=== PATIENT | male | born 1950 | race Caucasian/White ===

== ENCOUNTER 2020-08-21 14:16 | Inpatient (IN) ==
[2020-08-22] MEDS ORDERED: OLANZapine 5 MG TAB.RAPDIS PO PRN (17:33)
[2020-08-22] MEDS: Famotidine 20 MG TABLET PO SCH (21:06)
[2020-08-22] MEDS: levETIRAcetam 250 MG TABLET PO SCH (21:06)
[2020-08-22] MEDS: dexAMETHasone 4 MG TABLET PO SCH (21:06)
[2020-08-22] MEDS: Clotrimazole/Betameth Dip CRM 45 APPL/45 GM TUBE TP SCH (21:07)
[2020-08-22 21:19] LABS: Bilirubin,Urine Negative (Negative); Blood,Urine Trace-intact (Negative); Clarity,Urine Clear (Clear); Color,Urine Yellow (Yellow); Glucose,Urine (UA) Normal (Normal); Ketones,Urine Negative (Negative); Leukocyte Esterase,Urine Negative (Negative); Nitrite,Urine Negative (Negative); Protein,Urine 30 mg/dL (Neg-Trace); Specific Gravity,Urine 1.015 (1.010-1.025)
[2020-08-22 21:24] LABS: Bacteria,Urine Moderate per hpf (None-Few); RBC,Urine 0-3 per hpf (0-3); Squamous Epithelial Cell,Urine Few per hpf (None-Few); WBC,Urine 0-3 per hpf (0-3)
[2020-08-23] MEDS: *HR* Heparin 5,000 UNIT/ML VIAL SQ SCH ×4 (00:02→23:27)
[2020-08-23] MEDS: Mag Hydrox/Al Hydrox/Simeth 30 ML UDC PO PRN (01:04)
[2020-08-23 05:40] LABS: Hemoglobin 10.7 g/dL (12.9-16.9); Mean Corpuscular HGB Conc 34.5 g/dL (31.6-35.5); Mean Corpuscular Hemoglobin 34.2 pg (28.0-33.3); Mean Platelet Volume 10.7 fL (9.4-12.4); Platelet Count 121 K/mcL (140-400); Red Blood Count 3.13 M/mcL (4.19-5.50); Red Cell Distribution Width 13.6 % (11.5-14.5); White Blood Count 15.9 K/mcL (4.3-11.1)
[2020-08-23 05:47] LABS: INR 1.1; Prothrombin Time 12.5 Seconds (9.4-12.1)
[2020-08-23 05:49] LABS: Activated Partial Thrombo Time 32.6 Seconds (26.0-36.0)
[2020-08-23 05:58] LABS: Alanine Aminotransferase 24 Units/L (7-52); Albumin/Globulin Ratio 2.1 (1.1-2.2); Alkaline Phosphatase 81 Units/L (34-104); Aspartate Amino Transferase 18 Units/L (13-39); BUN/Creatinine Ratio 26 (6-26); Bilirubin,Total 0.9 mg/dL (0.3-1.0); Blood Urea Nitrogen 26 mg/dL (8-23); Carbon Dioxide 25 mEq/L (23-29); Chloride 103 mEq/L (98-107); Globulin 1.4 g/dL (2.4-3.5); Glucose 141 mg/dL (70-105); Magnesium 1.9 mg/dL (1.6-2.6); Osmolality,Calculated 285 (280-300); Potassium 4.2 mEq/L (3.5-5.1); Sodium 134 mEq/L (136-145); Total Protein 4.4 g/dL (6.4-8.9); eGFR For African Americans > 60 (> 60); eGFR For Non-African Americans > 60 (> 60)
[2020-08-23] MEDS: Famotidine 20 MG TABLET PO SCH ×2 (08:48→21:08)
[2020-08-23] MEDS: dexAMETHasone 4 MG TABLET PO SCH ×2 (08:48→21:09)
[2020-08-23] MEDS: levETIRAcetam 250 MG TABLET PO SCH ×2 (08:48→21:10)
[2020-08-23] MEDS: Clotrimazole/Betameth Dip CRM 45 APPL/45 GM TUBE TP SCH ×2 (08:49→21:11)
[2020-08-23] MEDS: OLANZapine 5 MG TAB.RAPDIS PO SCH ×2 (13:50→21:09)
[2020-08-23] MEDS: Divalproex (12 HR) 250 MG TABLET PO SCH ×2 (15:20→21:08)
[2020-08-23] MEDS: Melatonin 3 MG TABLET PO PRN (21:08)
[2020-08-24] MEDS: OLANZapine 5 MG TAB.RAPDIS PO SCH ×3 (05:27→20:09)
[2020-08-24 05:52] LABS: Hematocrit 30.9 % (37.5-50.1); Hemoglobin 10.6 g/dL (12.9-16.9); Mean Corpuscular HGB Conc 34.3 g/dL (31.6-35.5); Mean Corpuscular Hemoglobin 34.1 pg (28.0-33.3); Mean Corpuscular Volume 99.4 fL (83.0-100.0); Mean Platelet Volume 10.6 fL (9.4-12.4); Platelet Count 110 K/mcL (140-400); Red Blood Count 3.11 M/mcL (4.19-5.50); Red Cell Distribution Width 13.8 % (11.5-14.5); White Blood Count 17.9 K/mcL (4.3-11.1)
[2020-08-24 06:04] LABS: BUN/Creatinine Ratio 25 (6-26); Blood Urea Nitrogen 25 mg/dL (8-23); Calcium 7.9 mg/dL (8.6-10.3); Carbon Dioxide 26 mEq/L (23-29); Chloride 105 mEq/L (98-107); Glucose 126 mg/dL (70-105); Magnesium 1.9 mg/dL (1.6-2.6); Osmolality,Calculated 286 (280-300); Potassium 4.2 mEq/L (3.5-5.1); Sodium 135 mEq/L (136-145); eGFR For African Americans > 60 (> 60); eGFR For Non-African Americans > 60 (> 60)
[2020-08-24] MEDS: Famotidine 20 MG TABLET PO SCH ×2 (08:32→20:09)
[2020-08-24] MEDS: levETIRAcetam 250 MG TABLET PO SCH ×2 (08:32→20:09)
[2020-08-24] MEDS: Divalproex (12 HR) 250 MG TABLET PO SCH ×2 (08:32→20:10)
[2020-08-24] MEDS: dexAMETHasone 4 MG TABLET PO SCH ×2 (08:33→20:10)
[2020-08-24] MEDS: *HR* Heparin 5,000 UNIT/ML VIAL SQ SCH ×2 (08:33→15:22)
[2020-08-24] MEDS: Clotrimazole/Betameth Dip CRM 45 APPL/45 GM TUBE TP SCH ×2 (08:34→20:10)
[2020-08-24 16:20] LABS: Basophils % 0.1 %; Hematocrit 31.6 % (37.5-50.1); Hemoglobin 10.7 g/dL (12.9-16.9); Immature Granulocytes % 0.8 % (0-4); Lymphocytes # 0.4 K/mcL (0.6-4.6); Lymphocytes % 2.1 %; Mean Corpuscular HGB Conc 33.9 g/dL (31.6-35.5); Mean Corpuscular Hemoglobin 34.2 pg (28.0-33.3); Mean Platelet Volume 10.6 fL (9.4-12.4); Monocytes # 0.7 K/mcL (0.0-1.3); Platelet Count 109 K/mcL (140-400); Red Blood Count 3.13 M/mcL (4.19-5.50); Red Cell Distribution Width 13.8 % (11.5-14.5)
[2020-08-24 16:22] LABS: Neutrophils # 16.7 K/mcL (1.6-8.9)
[2020-08-24] MEDS: Melatonin 3 MG TABLET PO PRN (21:28)
[2020-08-25] MEDS: OLANZapine 5 MG TAB.RAPDIS PO SCH ×3 (05:45→20:52)
[2020-08-25] MEDS: levETIRAcetam 250 MG TABLET PO SCH ×2 (08:31→20:53)
[2020-08-25] MEDS: dexAMETHasone 4 MG TABLET PO SCH (08:31)
[2020-08-25] MEDS: Divalproex (12 HR) 250 MG TABLET PO SCH ×2 (08:31→20:53)
[2020-08-25] MEDS: *HR* Heparin 5,000 UNIT/ML VIAL SQ SCH ×3 (08:32→16:30)
[2020-08-25] MEDS: Famotidine 20 MG TABLET PO SCH ×2 (08:32→20:53)
[2020-08-25] MEDS: Clotrimazole/Betameth Dip CRM 45 APPL/45 GM TUBE TP SCH ×3 (08:32→20:52)
[2020-08-25] MEDS: Cefdinir 300 MG CAPSULE PO SCH ×2 (12:50→20:53)
[2020-08-26] MEDS: *HR* Heparin 5,000 UNIT/ML VIAL SQ SCH ×4 (00:30→23:40)
[2020-08-26] MEDS: OLANZapine 5 MG TAB.RAPDIS PO SCH ×3 (05:10→21:46)
[2020-08-26] MEDS: dexAMETHasone 4 MG TABLET PO SCH (09:44)
[2020-08-26] MEDS: levETIRAcetam 250 MG TABLET PO SCH ×2 (09:45→21:45)
[2020-08-26] MEDS: Cefdinir 300 MG CAPSULE PO SCH ×2 (09:45→21:47)
[2020-08-26] MEDS: Famotidine 20 MG TABLET PO SCH ×2 (09:46→21:46)
[2020-08-26] MEDS: Divalproex (12 HR) 250 MG TABLET PO SCH ×2 (09:47→21:46)
[2020-08-26] MEDS: Clotrimazole/Betameth Dip CRM 45 APPL/45 GM TUBE TP SCH ×2 (09:47→21:48)
[2020-08-27] MEDS: OLANZapine 5 MG TAB.RAPDIS PO SCH ×3 (05:02→20:58)
[2020-08-27 05:30] LABS: Basophils % 0.1 %; Hematocrit 31.3 % (37.5-50.1); Hemoglobin 10.5 g/dL (12.9-16.9); Immature Granulocytes % 0.8 % (0-4); Lymphocytes # 0.4 K/mcL (0.6-4.6); Lymphocytes % 2.6 %; Mean Corpuscular HGB Conc 33.5 g/dL (31.6-35.5); Mean Corpuscular Volume 101.3 fL (83.0-100.0); Mean Platelet Volume 10.6 fL (9.4-12.4); Monocytes # 0.7 K/mcL (0.0-1.3); Monocytes % 4.1 %; Red Blood Count 3.09 M/mcL (4.19-5.50); Red Cell Distribution Width 14.4 % (11.5-14.5); Segmented Neutrophils % 92.4 %; White Blood Count 16.2 K/mcL (4.3-11.1)
[2020-08-27 05:41] LABS: Platelet Count 77 K/mcL (140-400)
[2020-08-27 05:44] LABS: Platelet Estimate Decreased (Normal)
[2020-08-27 05:49] LABS: Alanine Aminotransferase 24 Units/L (7-52); Albumin 2.8 g/dL (3.5-5.7); Albumin/Globulin Ratio 1.6 (1.1-2.2); Alkaline Phosphatase 91 Units/L (34-104); Aspartate Amino Transferase 15 Units/L (13-39); BUN/Creatinine Ratio 25 (6-26); Bilirubin,Total 0.7 mg/dL (0.3-1.0); Blood Urea Nitrogen 29 mg/dL (8-23); Calcium 8.1 mg/dL (8.6-10.3); Carbon Dioxide 27 mEq/L (23-29); Chloride 104 mEq/L (98-107); Globulin 1.7 g/dL (2.4-3.5); Glucose 120 mg/dL (70-105); Magnesium 1.9 mg/dL (1.6-2.6); Osmolality,Calculated 291 (280-300); Potassium 4.5 mEq/L (3.5-5.1); Sodium 137 mEq/L (136-145); Total Protein 4.5 g/dL (6.4-8.9); eGFR For African Americans > 60 (> 60); eGFR For Non-African Americans > 60 (> 60)
[2020-08-27] MEDS: Cefdinir 300 MG CAPSULE PO SCH ×2 (08:03→20:58)
[2020-08-27] MEDS: Divalproex (12 HR) 250 MG TABLET PO SCH ×2 (08:03→20:58)
[2020-08-27] MEDS: dexAMETHasone 4 MG TABLET PO SCH (08:03)
[2020-08-27] MEDS: levETIRAcetam 250 MG TABLET PO SCH ×2 (08:03→20:58)
[2020-08-27] MEDS: Famotidine 20 MG TABLET PO SCH ×2 (08:03→20:58)
[2020-08-27] MEDS: Clotrimazole/Betameth Dip CRM 45 APPL/45 GM TUBE TP SCH ×2 (08:05→20:58)
[2020-08-27] MEDS: *HR* Heparin 5,000 UNIT/ML VIAL SQ SCH (10:30)
[2020-08-27] MEDS: Melatonin 3 MG TABLET PO PRN (20:58)
[2020-08-28] MEDS: OLANZapine 5 MG TAB.RAPDIS PO SCH ×3 (05:55→20:44)
[2020-08-28] MEDS: levETIRAcetam 250 MG TABLET PO SCH ×2 (08:45→20:44)
[2020-08-28] MEDS: dexAMETHasone 4 MG TABLET PO SCH (08:46)
[2020-08-28] MEDS: Famotidine 20 MG TABLET PO SCH ×2 (08:47→20:43)
[2020-08-28] MEDS: Divalproex (12 HR) 250 MG TABLET PO SCH ×2 (08:47→20:43)
[2020-08-28] MEDS: Cefdinir 300 MG CAPSULE PO SCH ×2 (08:47→20:44)
[2020-08-28] MEDS: Clotrimazole/Betameth Dip CRM 45 APPL/45 GM TUBE TP SCH ×2 (08:48→20:45)
[2020-08-28 16:41] LABS: Basophils % 0.1 %; Hemoglobin 10.1 g/dL (12.9-16.9); Immature Granulocytes % 0.6 % (0-4); Lymphocytes # 0.2 K/mcL (0.6-4.6); Lymphocytes % 1.5 %; Mean Corpuscular HGB Conc 33.7 g/dL (31.6-35.5); Mean Corpuscular Hemoglobin 34.2 pg (28.0-33.3); Mean Corpuscular Volume 101.7 fL (83.0-100.0); Mean Platelet Volume 10.3 fL (9.4-12.4); Monocytes # 0.5 K/mcL (0.0-1.3); Monocytes % 3.2 %; Neutrophils # 13.4 K/mcL (1.6-8.9); Red Blood Count 2.95 M/mcL (4.19-5.50); Red Cell Distribution Width 14.5 % (11.5-14.5); Segmented Neutrophils % 94.6 %; White Blood Count 14.2 K/mcL (4.3-11.1)
[2020-08-28 17:04] LABS: Platelet Count 61 K/mcL (140-400)
[2020-08-29] MEDS: OLANZapine 5 MG TAB.RAPDIS PO SCH (04:48)
[2020-08-29] MEDS: Cefdinir 300 MG CAPSULE PO SCH ×2 (08:31→20:42)
[2020-08-29] MEDS: Divalproex (12 HR) 250 MG TABLET PO SCH ×2 (08:31→20:42)
[2020-08-29] MEDS: Famotidine 20 MG TABLET PO SCH ×2 (08:31→20:41)
[2020-08-29] MEDS: levETIRAcetam 250 MG TABLET PO SCH ×2 (08:32→20:41)
[2020-08-29] MEDS: Clotrimazole/Betameth Dip CRM 45 APPL/45 GM TUBE TP SCH ×2 (08:32→20:42)
[2020-08-29] MEDS: OLANZapine 10 MG TAB.RAPDIS PO SCH (20:41)
[2020-08-29] MEDS: Melatonin 3 MG TABLET PO PRN (20:41)
[2020-08-29] MEDS: Mag Hydrox/Al Hydrox/Simeth 30 ML UDC PO PRN (20:41)
[2020-08-30] MEDS: Clotrimazole/Betameth Dip CRM 45 APPL/45 GM TUBE TP SCH ×3 (01:25→21:37)
[2020-08-30 05:14] LABS: Hematocrit 28.7 % (37.5-50.1); Hemoglobin 9.7 g/dL (12.9-16.9); Mean Corpuscular HGB Conc 33.8 g/dL (31.6-35.5); Mean Corpuscular Hemoglobin 33.9 pg (28.0-33.3); Mean Corpuscular Volume 100.3 fL (83.0-100.0); Mean Platelet Volume 10.6 fL (9.4-12.4); Red Blood Count 2.86 M/mcL (4.19-5.50); Red Cell Distribution Width 14.5 % (11.5-14.5); White Blood Count 8.7 K/mcL (4.3-11.1)
[2020-08-30 05:20] LABS: Platelet Count 49 K/mcL (140-400)
[2020-08-30 05:30] LABS: BUN/Creatinine Ratio 22 (6-26); Blood Urea Nitrogen 24 mg/dL (8-23); Calcium 7.5 mg/dL (8.6-10.3); Carbon Dioxide 26 mEq/L (23-29); Chloride 105 mEq/L (98-107); Glucose 101 mg/dL (70-105); Magnesium 1.8 mg/dL (1.6-2.6); Osmolality,Calculated 288 (280-300); Potassium 3.8 mEq/L (3.5-5.1); Sodium 137 mEq/L (136-145); eGFR For African Americans > 60 (> 60); eGFR For Non-African Americans > 60 (> 60)
[2020-08-30] MEDS: Famotidine 20 MG TABLET PO SCH ×2 (09:29→21:37)
[2020-08-30] MEDS: levETIRAcetam 250 MG TABLET PO SCH ×2 (09:29→21:37)
[2020-08-30] MEDS: Divalproex (12 HR) 250 MG TABLET PO SCH ×2 (09:29→21:37)
[2020-08-30] MEDS: OLANZapine 5 MG TAB.RAPDIS PO SCH (09:30)
[2020-08-30] MEDS: Nystatin SUSP 5 ML UD.LIQ PO SCH ×3 (12:07→21:36)
[2020-08-30] MEDS: Acetaminophen 325 MG TABLET PO SCH (21:37)
[2020-08-30] MEDS: Melatonin 3 MG TABLET PO SCH (21:37)
[2020-08-30] MEDS: OLANZapine 10 MG TAB.RAPDIS PO SCH (21:37)
[2020-08-31] MEDS: levETIRAcetam 250 MG TABLET PO SCH ×2 (07:23→21:39)
[2020-08-31] MEDS: Nystatin SUSP 5 ML UD.LIQ PO SCH ×4 (07:23→21:41)
[2020-08-31] MEDS: Famotidine 20 MG TABLET PO SCH ×2 (07:23→21:36)
[2020-08-31] MEDS: OLANZapine 5 MG TAB.RAPDIS PO SCH (07:24)
[2020-08-31] MEDS: Divalproex (12 HR) 250 MG TABLET PO SCH (07:24)
[2020-08-31] MEDS: Clotrimazole/Betameth Dip CRM 45 APPL/45 GM TUBE TP SCH ×2 (07:24→21:41)
[2020-08-31] MEDS ORDERED: Divalproex (12 HR) 500 MG TABLET PO SCH (21:00)
[2020-08-31] MEDS: Acetaminophen 325 MG TABLET PO SCH (21:40)
[2020-08-31] MEDS: Melatonin 3 MG TABLET PO SCH (21:40)
[2020-08-31] MEDS: OLANZapine 10 MG TAB.RAPDIS PO SCH (21:41)
[2020-09-01] MEDS: levETIRAcetam 250 MG TABLET PO SCH ×2 (09:50→21:02)
[2020-09-01] MEDS: OLANZapine 5 MG TAB.RAPDIS PO SCH (09:51)
[2020-09-01] MEDS: Famotidine 20 MG TABLET PO SCH ×2 (09:51→21:03)
[2020-09-01] MEDS: Clotrimazole/Betameth Dip CRM 45 APPL/45 GM TUBE TP SCH ×2 (09:53→21:01)
[2020-09-01] MEDS: Nystatin SUSP 5 ML UD.LIQ PO SCH ×4 (09:54→21:02)
[2020-09-01 10:02] LABS: Basophils % 0.2 %; Eosinophils # 0.2 K/mcL (0.0-0.6); Eosinophils % 2.9 %; Hematocrit 31.7 % (37.5-50.1); Hemoglobin 10.7 g/dL (12.9-16.9); Immature Granulocytes % 0.4 % (0-4); Lymphocytes # 0.7 K/mcL (0.6-4.6); Lymphocytes % 13.6 %; Mean Corpuscular HGB Conc 33.8 g/dL (31.6-35.5); Mean Corpuscular Hemoglobin 34.2 pg (28.0-33.3); Mean Corpuscular Volume 101.3 fL (83.0-100.0); Monocytes # 0.3 K/mcL (0.0-1.3); Monocytes % 5.4 %; Red Blood Count 3.13 M/mcL (4.19-5.50); Red Cell Distribution Width 14.5 % (11.5-14.5); Segmented Neutrophils % 77.5 %; White Blood Count 5.2 K/mcL (4.3-11.1)
[2020-09-01 10:03] LABS: Platelet Count 47 K/mcL (140-400)
[2020-09-01 10:16] LABS: BUN/Creatinine Ratio 14 (6-26); Blood Urea Nitrogen 17 mg/dL (8-23); Calcium 7.7 mg/dL (8.6-10.3); Carbon Dioxide 31 mEq/L (23-29); Chloride 105 mEq/L (98-107); Glucose 100 mg/dL (70-105); Osmolality,Calculated 286 (280-300); Potassium 4.7 mEq/L (3.5-5.1); Sodium 137 mEq/L (136-145); eGFR For African Americans > 60 (> 60); eGFR For Non-African Americans 59 (> 60)
[2020-09-01] MEDS ORDERED: traZODone 50 MG TABLET PO PRN (21:00)
[2020-09-01] MEDS: hydrOXYzine pamoate 25 MG CAPSULE PO SCH (21:02)
[2020-09-01] MEDS: QUEtiapine Fumarate 25 MG TABLET PO SCH (21:03)
[2020-09-01] MEDS: Acetaminophen 325 MG TABLET PO SCH (21:03)
[2020-09-01] MEDS: Melatonin 3 MG TABLET PO SCH (21:03)
[2020-09-02 06:08] LABS: Hematocrit 27.9 % (37.5-50.1); Hemoglobin 9.4 g/dL (12.9-16.9); Mean Corpuscular HGB Conc 33.7 g/dL (31.6-35.5); Mean Corpuscular Hemoglobin 33.7 pg (28.0-33.3); Mean Platelet Volume 10.7 fL (9.4-12.4); Red Blood Count 2.79 M/mcL (4.19-5.50); Red Cell Distribution Width 14.4 % (11.5-14.5); White Blood Count 4.6 K/mcL (4.3-11.1)
[2020-09-02 06:13] LABS: Platelet Count 46 K/mcL (140-400)
[2020-09-02] MEDS: levETIRAcetam 250 MG TABLET PO SCH ×2 (08:49→20:33)
[2020-09-02] MEDS: Famotidine 20 MG TABLET PO SCH ×2 (08:49→20:35)
[2020-09-02] MEDS: Nystatin SUSP 5 ML UD.LIQ PO SCH ×4 (08:50→20:35)
[2020-09-02] MEDS: Clotrimazole/Betameth Dip CRM 45 APPL/45 GM TUBE TP SCH ×2 (08:50→20:35)
[2020-09-02] MEDS: traZODone 50 MG TABLET PO PRN (20:34)
[2020-09-02] MEDS: hydrOXYzine pamoate 25 MG CAPSULE PO SCH (20:34)
[2020-09-02] MEDS: QUEtiapine Fumarate 25 MG TABLET PO SCH (20:34)
[2020-09-02] MEDS: Acetaminophen 325 MG TABLET PO SCH (20:34)
[2020-09-02] MEDS: Melatonin 3 MG TABLET PO SCH (20:34)
[2020-09-03] MEDS: Clotrimazole/Betameth Dip CRM 45 APPL/45 GM TUBE TP SCH ×2 (09:01→21:13)
[2020-09-03] MEDS: Famotidine 20 MG TABLET PO SCH ×2 (09:02→21:23)
[2020-09-03] MEDS: levETIRAcetam 250 MG TABLET PO SCH ×2 (09:02→23:08)
[2020-09-03] MEDS: Nystatin SUSP 5 ML UD.LIQ PO SCH ×4 (09:03→21:12)
[2020-09-03] MEDS: hydrOXYzine pamoate 25 MG CAPSULE PO SCH (21:12)
[2020-09-03] MEDS: QUEtiapine Fumarate 25 MG TABLET PO SCH (21:12)
[2020-09-03] MEDS: Melatonin 3 MG TABLET PO SCH (21:13)
[2020-09-03] MEDS: traZODone 50 MG TABLET PO PRN (21:13)
[2020-09-03] MEDS: Acetaminophen 325 MG TABLET PO SCH (21:13)
[2020-09-04 05:06] LABS: Hemoglobin 8.3 g/dL (12.9-16.9); Mean Corpuscular HGB Conc 33.2 g/dL (31.6-35.5); Mean Corpuscular Hemoglobin 33.1 pg (28.0-33.3); Mean Corpuscular Volume 99.6 fL (83.0-100.0); Mean Platelet Volume 10.2 fL (9.4-12.4); Red Blood Count 2.51 M/mcL (4.19-5.50); Red Cell Distribution Width 14.6 % (11.5-14.5); White Blood Count 2.6 K/mcL (4.3-11.1)
[2020-09-04 05:11] LABS: Platelet Count 47 K/mcL (140-400)
[2020-09-04 05:21] LABS: Alanine Aminotransferase 24 Units/L (7-52); Albumin 2.3 g/dL (3.5-5.7); Albumin/Globulin Ratio 1.4 (1.1-2.2); Alkaline Phosphatase 60 Units/L (34-104); Aspartate Amino Transferase 23 Units/L (13-39); BUN/Creatinine Ratio 15 (6-26); Bilirubin,Total 0.4 mg/dL (0.3-1.0); Blood Urea Nitrogen 18 mg/dL (8-23); Calcium 7.1 mg/dL (8.6-10.3); Carbon Dioxide 26 mEq/L (23-29); Chloride 107 mEq/L (98-107); Globulin 1.6 g/dL (2.4-3.5); Glucose 105 mg/dL (70-105); Magnesium 1.9 mg/dL (1.6-2.6); Osmolality,Calculated 284 (280-300); Potassium 3.7 mEq/L (3.5-5.1); Sodium 136 mEq/L (136-145); Total Protein 3.9 g/dL (6.4-8.9); eGFR For African Americans > 60 (> 60); eGFR For Non-African Americans 60 (> 60)
[2020-09-04] MEDS: Nystatin SUSP 5 ML UD.LIQ PO SCH ×4 (05:54→22:00)
[2020-09-04] MEDS: levETIRAcetam 250 MG TABLET PO SCH ×2 (08:18→22:00)
[2020-09-04] MEDS: Famotidine 20 MG TABLET PO SCH ×2 (08:18→22:00)
[2020-09-04] MEDS: Clotrimazole/Betameth Dip CRM 45 APPL/45 GM TUBE TP SCH ×2 (08:20→22:01)
[2020-09-04] MEDS: Melatonin 3 MG TABLET PO SCH (22:00)
[2020-09-04] MEDS: Acetaminophen 325 MG TABLET PO SCH (22:00)
[2020-09-04] MEDS: QUEtiapine Fumarate 25 MG TABLET PO SCH (22:00)
[2020-09-05] MEDS: Nystatin SUSP 5 ML UD.LIQ PO SCH ×4 (06:17→22:29)
[2020-09-05] MEDS: levETIRAcetam 250 MG TABLET PO SCH ×2 (08:48→22:26)
[2020-09-05] MEDS: Clotrimazole/Betameth Dip CRM 45 APPL/45 GM TUBE TP SCH ×2 (08:50→22:30)
[2020-09-05] MEDS: Famotidine 20 MG TABLET PO SCH ×2 (09:10→22:29)
[2020-09-05] MEDS: traZODone 50 MG TABLET PO PRN (22:26)
[2020-09-05] MEDS: Melatonin 3 MG TABLET PO SCH (22:29)
[2020-09-05] MEDS: Acetaminophen 325 MG TABLET PO SCH (22:29)
[2020-09-05] MEDS: QUEtiapine Fumarate 25 MG TABLET PO SCH (22:29)
[2020-09-06] MEDS: Nystatin SUSP 5 ML UD.LIQ PO SCH ×2 (08:12→11:53)
[2020-09-06] MEDS: Famotidine 20 MG TABLET PO SCH ×2 (08:13→20:28)
[2020-09-06] MEDS: levETIRAcetam 250 MG TABLET PO SCH ×2 (08:13→20:27)
[2020-09-06] MEDS: Clotrimazole/Betameth Dip CRM 45 APPL/45 GM TUBE TP SCH ×2 (08:14→20:28)
[2020-09-06] MEDS: Acetaminophen 325 MG TABLET PO SCH (20:28)
[2020-09-06] MEDS: QUEtiapine Fumarate 25 MG TABLET PO SCH (20:28)
[2020-09-06] MEDS: Melatonin 3 MG TABLET PO SCH (20:28)
[2020-09-06] MEDS: Temazepam 15 MG CAPSULE PO PRN (23:37)
[2020-09-07 05:58] LABS: Hematocrit 23.9 % (37.5-50.1); Hemoglobin 8.1 g/dL (12.9-16.9); Mean Corpuscular HGB Conc 33.9 g/dL (31.6-35.5); Mean Corpuscular Hemoglobin 33.8 pg (28.0-33.3); Mean Corpuscular Volume 99.6 fL (83.0-100.0); Mean Platelet Volume 10.1 fL (9.4-12.4); Platelet Count 101 K/mcL (140-400); White Blood Count 2.9 K/mcL (4.3-11.1)
[2020-09-07] MEDS: Famotidine 20 MG TABLET PO SCH ×2 (08:32→21:58)
[2020-09-07] MEDS: levETIRAcetam 250 MG TABLET PO SCH ×2 (08:32→21:58)
[2020-09-07] MEDS: Clotrimazole/Betameth Dip CRM 45 APPL/45 GM TUBE TP SCH ×2 (08:36→22:01)
[2020-09-07] MEDS ORDERED: Acetaminophen 325 MG TABLET PO PRN (09:56)
[2020-09-07] MEDS: Melatonin 3 MG TABLET PO SCH (21:58)
[2020-09-07] MEDS: QUEtiapine Fumarate 25 MG TABLET PO SCH (21:59)
[2020-09-07] MEDS: Acetaminophen 325 MG TABLET PO SCH (22:00)
[2020-09-08] MEDS: levETIRAcetam 250 MG TABLET PO SCH (10:03)
[2020-09-08] MEDS: Famotidine 20 MG TABLET PO SCH (10:03)
[2020-09-08] MEDS: Clotrimazole/Betameth Dip CRM 45 APPL/45 GM TUBE TP SCH (10:05)
[2020-09-09] MEDS: Temazepam 15 MG CAPSULE PO PRN (00:32)
[2020-09-09] MEDS: Acetaminophen 325 MG TABLET PO SCH (00:32)
[2020-09-09] MEDS: levETIRAcetam 250 MG TABLET PO SCH ×2 (00:32→09:48)
[2020-09-09] MEDS: Famotidine 20 MG TABLET PO SCH ×2 (00:32→09:49)
[2020-09-09] MEDS: traZODone 50 MG TABLET PO PRN (00:32)
[2020-09-09] MEDS: Melatonin 3 MG TABLET PO SCH (00:33)
[2020-09-09] MEDS: QUEtiapine Fumarate 25 MG TABLET PO SCH (00:33)
[2020-09-09] MEDS: Clotrimazole/Betameth Dip CRM 45 APPL/45 GM TUBE TP SCH ×2 (00:33→09:49)
[2020-09-09 08:16] VITALS: BP 110/69
== END 2020-09-09 10:00 | DRG 945 ==
LOC: INPGRE 08-22 15:54
PROVIDERS: ADMIT Family Medicine; ATTEND Family Medicine